=== PATIENT | male | born 2000 | race African-American/Black ===

== ENCOUNTER 2023-11-18 17:21 | Emergency (ER) | payer BC, OTHER ==
[2023-11-18] MEDS ORDERED: Octyl 2-Cyanoacrylate 1 g/1 mL 1 APPLIC PEN TOP ONE (18:30)
[2023-11-18] MEDS ORDERED: Diphtheria,Pertussis(Acell),Tetanus Vaccine 0.5 ML Syringe IM ONE (18:32)
== END 2023-11-18 19:04 | disposition home or self-care (01) ==
LOC: MW.ED 17:21
DX: S61.215A Laceration without foreign body of left ring finger without damage to nail, initial encounter (principal); Z88.0 Allergy status to penicillin; Z23 Encounter for immunization; W20.8XXA Other cause of strike by thrown, projected or falling object, initial encounter
CPT/HCPCS: 12001; 73130; 90471; 90715; 99283; A9270